=== PATIENT | male | born 1980 | race Caucasian/White ===

== ENCOUNTER 2016-07-20 15:46 | Emergency (ER) | payer BC ==
[~2016-07-20] VITALS: Ht 182.9 cm; Wt 100.0 kg
[~2016-07-20 15:46] MED LIST: CITA20TA4 PO; GABA600T PO; IBUP800T23 PO; OXYC10 PO; OXYC15TA PO; XANA1TAB6 PO
[2016-07-20 15:48] VITALS: BP 130/75; PULSE 79; RESP 16; TEMP 98.3; O2SAT 98
[2016-07-20] MEDS ORDERED: GABA800T PO (18:14)
[2016-07-20] MEDS ORDERED: OXYC30TA PO (18:14)
[2016-07-20] MEDS ORDERED: ALPR1TAB3 PO (18:14)
[2016-07-20] MEDS ORDERED: OXYC-259 PO (18:14)
[2016-07-20] MEDS ORDERED: CEPH-460 PO (18:20)
[2016-07-20] MEDS ORDERED: BACT800T5 PO (18:20)
--- NOTE | 2016-07-20 18:28 | PD ---
HPI Chief Complaint: Skin Problem Time Seen by Provider: 18:15 Travel History International Travel<30 days: No Contact w/Intl Traveler<30days: No Traveled to known affect area: No History of Present Illness HPI 36-year-old male presents for evaluation of rash. Symptoms started 3 days ago. He has had some superficial skin excoriation on the left cheek and on the forehead which she woke up with 3 days ago. There is been no actual peeling of the skin. He has had no blisters, sunburn. He denies any trauma. He's had no additional symptoms. He has been using silver sulfadiazine on the skin in an effort to keep it clean. He has had this same issue several times in the past. He does note that he uses cleaning products on his face on a regular basis and this only ever happens on his face. He uses products from companies called [employer], most recently use them 1 week ago. Denies any recent systemic antibiotic use. No fevers or chills. No mucous membrane involvement. No other complaints. PFSH Past Medical History Anxiety: Yes Diminished Hearing: No Social History Alcohol Use: Yes (SOCIALLY) Tobacco Use: Yes ("VAPOR") Substance Use: No Allergies-Medications (Allergen,Severity, Reaction): Coded Allergies: No Known Allergies (Unverified , 07/20/16) Reported Meds & Prescriptions Reported Meds & Active Scripts Active Keflex (Cephalexin) 500 Mg Cap 500 Mg PO Q8H Bactrim DS (Sulfamethoxazole-Trimethoprim) 800-160 Mg Tab 1 Tab PO BID Reported Alprazolam 1 Mg Tab 1.5 Mg PO Q6H PRN Oxycodone (Oxycodone HCl) 30 Mg Tab 30 Mg PO Q6H PRN Oxycontin (Oxycodone HCl) 10 Mg Tab 20 Mg PO Q12HR Gabapentin 800 Mg Tab 800 Mg PO TID Review of Systems Except as stated in HPI: all other systems reviewed are Neg Physical Exam Narrative GENERAL: Well-developed well-nourished male in no acute distress SKIN: Warm and dry. There is some superficial epidermal skin excoriation on the forehead and on the left cheek. There appear to be some mild impetigo formation. There is no erythema, no blisters. HEAD: Atraumatic. Normocephalic. EYES: Pupils equal and round. No scleral icterus. No injection or drainage. ENT: No nasal bleeding or discharge. Mucous membranes pink and moist. NECK: Trachea midline. No JVD. CARDIOVASCULAR: Regular rate and rhythm. No murmur appreciated. RESPIRATORY: No accessory muscle use. Clear to auscultation. Breath sounds equal bilaterally. Data Data Last Documented VS Vital Signs Date Time Temp Pulse Resp B/P Pulse Ox O2 Delivery O2 Flow Rate FiO2 07/20/16 15:48 98.3 79 16 130/75 98 Orders Wound Culture And Gram Stain (07/20/16 18:19) Sulfamet-Trimeth Ds 800-160 Mg (Bactrim (07/20/16 18:30) Cephalexin (Keflex) (07/20/16 18:30) [facility] Medical Decision Making Medical Screen Exam Complete: Yes Emergency Medical Condition: Yes Medical Record Reviewed: Yes Differential Diagnosis Irritant contact dermatitis, staph scalded skin syndrome, impetigo, erysipelas, photodermatitis, Monterroso-Michael syndrome Narrative Course 36-year-old male with recurrent facial rash which is burning in nature. He has had what appears to be superficial epidermal skin excoriation on the forehead and on the left cheek over the past 3 days. He has had similar outbreaks several times in the past which usually resolves on its own after a few weeks. He does use various facial creams on a regular basis and this could certainly be repaired irritant contact dermatitis. He only ever uses the cream on his face and this issue only occurs on his face. He is encouraged to discontinue their use. There appears to be mild impetigo formation. A wound culture will be performed. The patient will be placed on Bactrim and Keflex. He is encouraged to follow-up with a fryline attendant for this recurrent issue. He is stable for discharge. Diagnosis Primary Impression: Facial rash Referrals: Detective Investigator Additional Instructions: As discussed, quit using the cleaning product on the face as this could be an irritant contact dermatitis secondary to the use of these chemicals. Keep the skin clean by gently wash with soap and water and applying some antibiotic cream. Take the antibiotics as prescribed. Follow up with a fryline attendant. Return for any acutely new or worsening symptoms. Med/Other Pt SpecificInfo: Prescription(s) given Scripts Cephalexin (Keflex)500 Mg [id number] Mg PO Q8H #30 CAP Ref 0 Prov:Martha Chahal MD 07/20/16 Sulfamethoxazole-Trimethoprim (Bactrim DS)800-160 Mg Tab1 Tab PO BID #20 TAB Ref 0 Prov:Martha Chahal MD 07/20/16 Disposition: 01 DISCHARGE HOME Condition: Stable [place] Jul 20, 2016 18:28
[2016-07-20] MEDS ORDERED: CEPHALEXIN MONOHYDRATE 500 MG CAP PO ONE (18:30)
[2016-07-20] MEDS ORDERED: SULFAMETHOXAZOLE-TRIMETHOPRIM DS 800-160 MG TAB PO ONE (18:30)
[2016-07-20 18:32] VITALS: BP 152/102; PULSE 60; RESP 24; TEMP 98.2; O2SAT 98
== END 2016-07-20 18:54 | disposition home or self-care (01) ==
LOC: NEPD 15:46
DX: R21 Rash and other nonspecific skin eruption (principal); L01.00 Impetigo, unspecified; Z72.0 Tobacco use; Z86.59 Personal history of other mental and behavioral disorders
CPT/HCPCS: 87070; 87205; 99284